=== PATIENT | female | born 1980 | race Caucasian/White ===

== ENCOUNTER 2018-06-14 16:17 | Emergency (ER) | payer OTHER ==
[2018-06-14] MEDS: METHOCARBAMOL 750 MG TAB PO (17:23)
[2018-06-14] MEDS: KETOROLAC 30 MG INJ IM (17:24)
== END 2018-06-14 18:49 | disposition home or self-care (01) ==
LOC: FTE 16:17
DX: S39.012A Strain of muscle, fascia and tendon of lower back, initial encounter (principal); X50.0XXA Overexertion from strenuous movement or load, initial encounter; Y92.9 Unspecified place or not applicable
CPT/HCPCS: 81025; 96372; 99284-25